=== PATIENT | male | born 1980 | race Caucasian/White ===

== ENCOUNTER 2017-09-22 12:30 | Emergency (ER) | payer MEDICAID ==
[2017-09-22 12:37] VITALS: RESP 17; TEMP 97.7
[2017-09-22] MEDS ORDERED: TDAP ADULT 0.5 ML INJ (BOOSTRIX) IM ONE (13:56)
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
[2017-09-22 15:05] VITALS: BP 133/77; PULSE 77; O2SAT 94
== END 2017-09-22 15:04 | disposition home or self-care (01) ==
PROC: 2W29X4Z Dressing of Left Upper Extremity using Bandage (ICD-10-PCS; principal; 2017-09-22)
DX: T23.232A Burn of second degree of multiple left fingers (nail), not including thumb, initial encounter (principal); T31.0 Burns involving less than 10% of body surface; Z23 Encounter for immunization; X16.XXXA Contact with hot heating appliances, radiators and pipes, initial encounter